=== PATIENT | female | born 1995 | race African-American/Black ===

== ENCOUNTER 2017-01-29 07:10 | Inpatient (IN) | payer OTHER ==
[2017-01-29] VITALS (25 sets, daily range): BP systolic 111–141; BP diastolic 53–92
[~2017-01-29] VITALS: Ht 149.9 cm; Wt 72.1 kg
[~2017-01-29 07:10] MED LIST: FERR SULFATE325 MG PO; PRE-NATAL PO
[2017-01-29 08:05] LABS: HEMATOCRIT 37.6 % (37.0-47.0); HEMOGLOBIN 12.4 g/dl (12.0-16.0); IMMATURE GRANULOCYTES 0.5 % (0.0-1.0); MEAN CELL VOLUME 79.5 fL CALC (80.0-100.0); MEAN CORPUSCULAR HGB 26.2 pG CALC (26.0-32.0); NEUT# 13.55 thou/uL (2.00-7.15); RED BLOOD COUNT 4.73 mill/uL (4.20-5.60); RED CELL DISTRI WIDTH 15.3 % (11.5-15.5)
[2017-01-29 08:25] LABS: ALBUMIN 3.9 g/dL (3.2-5.0); ALKALINE PHOSPHATASE 205 u/l (38-126); ANION GAP 15 (6-22 (CALC)); BILIRUBIN, TOTAL 0.4 mg/dL (0.0-1.4); BUN 8 mg/dL (8-21); BUN/CREATININE RATIO 15 (12-20 (CALC)); CALCIUM 9.7 mg/dL (8.4-10.2); CARBON DIOXIDE 22 mmol/l (22-30); CHLORIDE 106 mmol/l (95-108); CREATININE 0.5 mg/dL (0.5-1.0); GFR > 60 ML/MIN (>=60 (CALC)); GFR FOR AFR.AMER. > 60 ML/MIN (>=60 (CALC)); GLUCOSE 74 mg/dL (70-106); POTASSIUM 4.1 mmol/l (3.5-5.1); SGOT/AST 21 u/l (14-36); SGPT/ALT 21 u/l (9-52); SODIUM 139 mmol/l (137-146); TOTAL PROTEIN 6.8 g/dL (6.3-8.2)
[2017-01-29 08:54] LABS: URINE BILIRUBIN - DIPSTICK NEGATIVE (NEGATIVE); URINE BLOOD DIPSTICK NEGATIVE (NEGATIVE); URINE COLOR YELLOW; URINE GLUCOSE - DIPSTICK NEGATIVE (NEGATIVE); URINE KETONE NEGATIVE (NEGATIVE); URINE LEUK ESTERASE NEGATIVE (NEGATIVE); URINE NITRITE - DIPSTICK NEGATIVE (Negative); URINE PH 7.5 (4.5-8.0); URINE PROTEIN - DIPSTICK NEGATIVE (NEG-TRACE); URINE SPECIFIC GRAVITY 1.015; URINE UROBILINOGEN - DIPSTICK 0.2 E.U./dL (0.2)
[2017-01-29 09:07] LABS: URINE CLARITY CLEAR
[2017-01-29 09:08] LABS: BARBITURATES NEGATIVE (NEGATIVE); COCAINE NEGATIVE (NEGATIVE); METHADONE NEGATIVE (NEGATIVE); TETRAHYDROCANNABIONOL NEGATIVE (NEGATIVE); TRICYLIC ANTIDEPRESSANTS NEGATIVE (NEGATIVE)
[2017-01-29 09:09] LABS: OXCYCODONE NEGATIVE (NEGATIVE)
[2017-01-30 05:56] LABS: HEMOGLOBIN 11.4 g/dl (12.0-16.0); IMMATURE GRANULOCYTES 0.4 % (0.0-1.0); MEAN CELL VOLUME 78.9 fL CALC (80.0-100.0); MEAN CORPUSCULAR HGB 26.5 pG CALC (26.0-32.0); MEAN CORPUSCULAR HGB CONC 33.5 g/L CALC (32.0-36.0); NEUT# 17.6 thou/uL (2.00-7.15); RED BLOOD COUNT 4.31 mill/uL (4.20-5.60); RED CELL DISTRI WIDTH 15.3 % (11.5-15.5)
[2017-01-30 09:40] VITALS: BP 121/50
[2017-01-30 21:40] VITALS: BP 104/56
[2017-01-31 07:20] VITALS: BP 115/71
[2017-01-31] MEDS ORDERED: IBUPROFEN600 MG PO (09:51)
== END 2017-01-31 13:30 | disposition home or self-care (01) | DRG 775 ==
LOC: OB 07:10 → OBOP 07:10 → OB 07:10 → OBOP 12:13 → OB 12:14
PROVIDERS: ADMIT Obstetrics & Gynecology; ATTEND Obstetrics & Gynecology
PROC: 10907ZC Drainage of Amniotic Fluid, Therapeutic from Products of Conception, Via Natural or Artificial Opening (ICD-10-PCS; principal; 2017-01-29)
PROC: 10D07Z6 Extraction of Products of Conception, Vacuum, Via Natural or Artificial Opening (ICD-10-PCS; 2017-01-29)
DX: O36.5930 Maternal care for other known or suspected poor fetal growth, third trimester, not applicable or unspecified (principal); O41.03X0 Oligohydramnios, third trimester, not applicable or unspecified; O76 Abnormality in fetal heart rate and rhythm complicating labor and delivery; O69.81X0 Labor and delivery complicated by cord around neck, without compression, not applicable or unspecified; Z3A.39 39 weeks gestation of pregnancy; Z37.0 Single live birth

== ENCOUNTER 2020-07-10 20:44 | Emergency (ER) | payer OTHER ==
[~2020-07-10] VITALS: Ht 149.9 cm; Wt 65.0 kg
[~2020-07-10 20:44] MED LIST changes: +IBUPROFEN600 MG PO
[2020-07-10 21:57] LABS: URINE BILIRUBIN - DIPSTICK NEGATIVE (NEGATIVE); URINE BLOOD DIPSTICK SMALL (NEGATIVE); URINE COLOR YELLOW; URINE GLUCOSE - DIPSTICK NEGATIVE (NEGATIVE); URINE KETONE NEGATIVE (NEGATIVE); URINE LEUK ESTERASE NEGATIVE (NEGATIVE); URINE PROTEIN - DIPSTICK NEGATIVE (NEG-TRACE); URINE SPECIFIC GRAVITY 1.025; URINE UROBILINOGEN - DIPSTICK 0.2 E.U./dL (0.2)
[2020-07-10 22:06] LABS: URINE NITRITE - DIPSTICK NEGATIVE (Negative)
[2020-07-10 22:08] LABS: URINE SQUAMOUS EPITHELIAL CELL FEW EPI/hpf (0-FEW); URINE WBC 0-2 WBC/hpf (0-5)
[2020-07-10] MEDS ORDERED: FLEXERIL5 M1 PO (22:45)
[2020-07-10] MEDS ORDERED: NAPROXEN375 MG PO (22:45)
[2020-07-10 22:50] VITALS: BP 135/75
== END 2020-07-10 22:56 | disposition home or self-care (01) | DRG 552 ==
LOC: ED 20:44
DX: M54.5 Low back pain (principal)

== ENCOUNTER 2021-07-20 23:44 | Emergency (ER) | payer SELFPAY ==
[~2021-07-20] VITALS: Ht 149.9 cm; Wt 57.0 kg
[~2021-07-20 23:44] MED LIST changes: +FLEXERIL5 M1 PO; +NAPROXEN375 MG PO
[2021-07-20 23:48] VITALS: BP 128/74
[2021-07-21] VITALS: BP 115/79
[2021-07-21 00:15] VITALS: BP 104/66
[2021-07-21 00:45] VITALS: BP 124/64
[2021-07-21] MEDS ORDERED: IMITREX100 M1 PO (01:11)
[2021-07-21 01:15] VITALS: BP 110/49
[2021-07-21 01:18] VITALS: BP 110/49
== END 2021-07-21 01:18 | disposition home or self-care (01) | DRG 103 ==
LOC: ED 23:44
DX: G43.909 Migraine, unspecified, not intractable, without status migrainosus (principal)

== ENCOUNTER 2022-01-16 09:06 | Emergency (ER) | payer SELFPAY ==
[~2022-01-16] VITALS: Ht 149.9 cm; Wt 70.0 kg
[~2022-01-16 09:06] MED LIST changes: +IMITREX100 M1 PO
[2022-01-16 09:12] VITALS: BP 118/80
[2022-01-16 09:16] VITALS: BP 123/81
[2022-01-16] MEDS ORDERED: BACTRIM DS1 TAB PO (09:23)
[2022-01-16] MEDS ORDERED: OMNI-PAC300 MG PO (09:23)
[2022-01-16 09:59] VITALS: BP 123/81
== END 2022-01-16 10:15 | disposition home or self-care (01) | DRG 603 ==
LOC: ED 09:06
DX: L03.113 Cellulitis of right upper limb (principal)